=== PATIENT | female | born 1980 | race Caucasian/White ===

== ENCOUNTER 2016-10-22 21:41 | Inpatient (IN) | payer OTHER ==
[2016-10-22 21:47] VITALS: BMI 24.7
[2016-10-22 23:06] LABS: BASOPHIL 0.3 % (0-2.0); EOSINOPHIL 0.1 % (0-4.5); MCH 27.2 pg (25.7-33.7); MEAN PLT VOLUME 7.6 fl (7.5-11.1); NEUTROPHILS 89.8 % (42.8-82.8); PLATELET COUNT 252 K/MM3 (134-434); RDW 13.3 % (11.6-15.6); WHITE BLOOD COUNT 16.1 K/mm3 (4.0-10.0)
[2016-10-22 23:07] LABS: URINE APPEARANCE CLEAR; URINE BILIRUBIN NEGATIVE (NEGATIVE); URINE BLOOD 2+ (NEGATIVE); URINE COLOR YELLOW; URINE GLUCOSE (UA) NEGATIVE (NEGATIVE); URINE KETONE 1+ (NEGATIVE); URINE LEUK ESTERASE NEGATIVE (NEGATIVE); URINE NITRITE NEGATIVE (NEGATIVE); URINE PROTEIN NEGATIVE (NEGATIVE); URINE UROBILINOGEN 4.0 E.U/dl E.U./dl (0.2-1.0)
[2016-10-22 23:08] LABS: URINE MUCUS RARE; URINE RBC 8 /hpf (0-3); URINE WBC 3 /hpf (3-5)
[2016-10-22 23:35] LABS: ANION GAP 12 (8-16); CALCIUM 8.7 mg/dL (8.5-10.1); CO2 26 mmol/L (21-32); CREATININE 0.5 mg/dL (0.55-1.02); GLUCOSE,RANDOM 110 mg/dL (74-106); SGOT/AST 298 U/L (15-37); SGPT/ALT 212 U/L (12-78)
[2016-10-22 23:37] LABS: ALK PHOS 62 U/L (45-117); BILIRUBIN,TOTAL 0.9 mg/dL (0.2-1.0)
--- NOTE | 2016-10-23 00:17 | PDOC ---
History of Present Illness - General Chief Complaint: Nausea/Vomiting Stated Complaint: VOMITING Time Seen by Provider: 10/22/16 21:54 - History of Present Illness Initial Comments: 10/22/16 23:45 CHIEF COMPLAINT: abdominal pain, vomiting HISTORY OF PRESENT ILLNESS: 36 yo F with history of ovarian cysts presents to ED with abdominal pain and vomiting since this afternoon. Patient states she has had two episodes of vomiting this evening. She denies any diarrhea, rectal bleeding, hematemesis, fever, or chills. She states that she had rice with milk and pizza today. She describes the pain as cramping and is localized to the right lower quadrant. No recent travel or sick contacts. PAST MEDICAL HISTORY: ovarian cysts FAMILY HISTORY: Denies SOCIAL HISTORY: Lives at home with . Denies tobacco, alcohol, illicit drug use. SURGICAL HISTORY: cystectomy ALLERGIES: No known drug allergies REVIEW OF SYSTEMS General/Constitutional: Denies fever or chills. Denies weakness, weight change. HEENT: Denies change in vision. Denies ear pain or discharge. Denies sore throat. Cardiovascular: Denies chest pain or shortness of breath. Respiratory: Denies cough, wheezing, or hemoptysis. Gastrointestinal: Abdominal pain and vomiting x 1 day. Denies diarrhea or constipation. Denies rectal bleeding. Genitourinary: Denies dysuria, frequency, or change in urination. Musculoskeletal: Denies joint or muscle swelling or pain. Denies neck or back pain. Neurologic: Denies headache, vertigo, loss of consciousness, or loss of sensation. PHYSICAL EXAM General Appearance: Well-appearing, appropriately dressed. No apparent distress , no intoxication. HEENT: EOMI, PERRLA, normal ENT inspection, normal voice, TMs normal, pharynx normal. No conjunctival pallor. No photophobia, scleral icterus. Neck: Supple. Trachea midline. No tenderness, rigidity, carotid bruit, stridor , lymphadenopathy, or thyromegaly. Respiratory/Chest: Lungs CTAB. No shortness of breath, chest tenderness, respiratory distress, accessory muscle use. No crackles, rales, rhonchi, stridor , wheezing, dullness Cardiovascular: RRR. S1, S2. Vascular Pulses: Dorsalis-Pedis (R): 2+, Dorsalis-Pedis (L): 2+ Gastrointestinal/Abdominal: RLQ tenderness. Normal bowel sounds. Abdomen soft , non-distended. No organomegaly, pulsatile mass, guarding, hernia, hepatomegaly, splenomegaly. Musculoskeletal/Extremities: Normal inspection. FROM of all extremities, normal capillary refill. Pelvis Stable. No CVA tenderness. No tenderness to extremities, pedal edema, swelling, erythema or deformity. Integumentary: Appropriate color, dry, warm. No cyanosis, erythema, jaundice or rash Neurologic: bond analyst II-XII intact. Fully oriented, alert. Appropriate mood/affect. Motor strength 5/5. No appreciable EOM palsy, facial droop or sensory deficit. 10/23/16 01:51 Past History - Past Medical History Allergies/Adverse Reactions: Allergies Allergy/AdvReac Type Severity Reaction Status Date / Time No Known Allergies Allergy Verified 10/22/16 21:58 Home Medications: Ambulatory Orders NK [No Known Home Medication] 10/07/15 - Psycho/Social/Smoking Cessation Hx Suicidal Ideation: No Smoking History: Never smoked Have you smoked in the past 12 months: No Number of Cigarettes Smoked Daily: 0 Information on smoking cessation initiated: No Hx Alcohol Use: No Drug/Substance Use Hx: No *Physical Exam - Vital Signs Last Vital Signs Temp Pulse Resp BP Pulse Ox 97.6 F 70 18 117/83 100 10/22/16 21:46 10/22/16 21:46 10/22/16 21:46 10/22/16 21:46 10/22/16 21:46 ED Treatment Course - LABORATORY CBC & Chemistry Diagram: 10/22/16 22:50 10/22/16 22:50 - ADDITIONAL ORDERS Additional order review: Laboratory Results 10/22/16 22:50 Urine Color Yellow Urine Appearance Clear Urine pH 7.0 Ur Specific [place] 1.011 Urine Protein Negative Urine Glucose (UA) Negative Urine Ketones 1+ H Urine Blood 2+ H Urine Nitrite Negative Urine Bilirubin Negative Urine Urobilinogen 4.0 e.u/dl H Ur Leukocyte Esterase Negative Urine RBC 8 Urine WBC 3 Ur Epithelial Cells Rare Urine Mucus Rare Urine HCG, Qual Negative 10/22/16 22:50 RBC 4.75 MCV 85.0 MCHC 32.0 RDW 13.3 MPV 7.6 Neutrophils % 89.8 H Lymphocytes % 6.6 L Monocytes % 3.2 L Eosinophils % 0.1 Basophils % 0.3 - RADIOLOGY Radiology Studies Ordered: Category Date Time Status ABDOMEN & PELVIS CT WITH CONTR [CT] Stat CT Scan 10/22/16 22:35 Ordered Medical Decision Making - Medical Decision Making 10/23/16 00:17 36 yo F with hx of ovarian cysts presents to ED with RLQ abdominal pain and vomiting. DDx includes appendicitis, pancreatitis, cholecystitis, colitis, diverticulitis , gastritis, AGE, ovarian torsion, ruptured ovarian cyst. -CBC, CMP, lipase -IVF -Abdomen & pelvis CT with contrast 10/23/16 01:25 Labs: WBC 16.1 AST 298, ALT 216 CT results: Mural thickening and edema of the gallbladder wall. Consider cholecystitis. Clinical presentation consistent with cholecystitis. Discussed case with ED attending Gary, will admit for acute cholecystitis. *DC/Admit/Observation/Transfer Diagnosis at time of Disposition: Acute cholecystitis - Discharge Dispostion Admit: Yes
[2016-10-23] MEDS ORDERED: ONDANSETRON 4 MG/2 ML VIAL IVPB PRN (02:42)
[2016-10-23] MEDS ORDERED: SODIUM CHLORIDE 1,000 ML IV SCH ×2 (02:45→09:26)
--- NOTE | 2016-10-23 02:50 | HP ---
CHIEF COMPLAINT: Abdominal pain PCP: none HISTORY OF PRESENT ILLNESS: This is a 36 year old female with a past medical history of ovarian cysts, s/p removal who presented to the ED with abdominal pain and vomiting 2 times yesterday. On exam, pt states she has a "little" pain. Denies nausea. No further vomiting since arrival to the ED. Denies SOB, chest pain, palpitations or diarrhea. ER course was notable for: (1) WBC 16.1 (2) CT c/w acute cholecystitis Recent Travel: pt denies PAST MEDICAL HISTORY: ovarian cysts PAST SURGICAL HISTORY: ovarian cystectomy Social History: lives at home with and 3 children, age 16, 15 and 2 Smoking: pt denies Alcohol: pt denies Drugs: pt denies Allergies No Known Allergies Allergy (Verified 10/22/16 21:58) HOME MEDICATIONS: 3 Medication Instructions Recorded NK [No Known Home Medication] 10/07/15 REVIEW OF SYSTEMS CONSTITUTIONAL: Absent: fever, chills, diaphoresis, generalized weakness, malaise, loss of appetite, weight change HEENT: Absent: rhinorrhea, nasal congestion, throat pain, throat swelling, difficulty swallowing, mouth swelling, ear pain, eye pain, visual changes CARDIOVASCULAR: Absent: chest pain, syncope, palpitations, irregular heart rate, lightheadedness , peripheral edema RESPIRATORY: Absent: cough, shortness of breath, dyspnea with exertion, orthopnea, wheezing, stridor, hemoptysis GASTROINTESTINAL: Present: abdominal pain, nausea, vomiting Absent: abdominal distension, diarrhea, constipation, melena, hematochezia GENITOURINARY: Absent: dysuria, frequency, urgency, hesitancy, hematuria, flank pain, genital pain MUSCULOSKELETAL: Absent: myalgia, arthralgia, joint swelling, back pain, neck pain SKIN: Absent: rash, itching, pallor HEMATOLOGIC/IMMUNOLOGIC: Absent: easy bleeding, easy bruising, lymphadenopathy, frequent infections ENDOCRINE: Absent: unexplained weight gain, unexplained weight loss, heat intolerance, cold intolerance NEUROLOGIC: Absent: headache, focal weakness or paresthesias, dizziness, unsteady gait, seizure, mental status changes, bladder or bowel incontinence PSYCHIATRIC: Absent: anxiety, depression, suicidal or homicidal ideation, hallucinations. PHYSICAL EXAMINATION Vital Signs - 24 hr 3 10/22/16 21:46 Temperature 97.6 F Pulse Rate 70 Respiratory 18 Rate Blood Pressure 117/83 O2 Sat by Pulse 100 Oximetry (%) GENERAL: Awake, alert, and fully oriented, in no acute distress. HEAD: Normal with no signs of trauma. EYES: Pupils equal, round and reactive to light, extraocular movements intact, sclera anicteric, conjunctiva clear. No lid lag. EARS, NOSE, THROAT: Ears normal, nares patent, oropharynx clear without exudates. Moist mucous membranes. NECK: Normal range of motion, supple without lymphadenopathy, JVD, or masses. LUNGS: Breath sounds equal, clear to auscultation bilaterally. No wheezes, and no crackles. No accessory muscle use. HEART: Regular rate and rhythm, normal S1 and S2 without murmur, rub or gallop. ABDOMEN: Soft, not distended, normoactive bowel sounds, no guarding, no rebound , no masses. No hepatomegaly or splenomegaly. generalized pain on palp, ann marie RUQ MUSCULOSKELETAL: Normal range of motion at all joints. No bony deformities or tenderness. No CVA tenderness. UPPER EXTREMITIES: 2+ pulses, warm, well-perfused. No cyanosis. No clubbing. Cap refill <2 seconds. No peripheral edema. LOWER EXTREMITIES: 2+ pulses, warm, well-perfused. No calf tenderness. No peripheral edema. NEUROLOGICAL: Cranial nerves II-XII intact. Normal speech. Normal gait. PSYCHIATRIC: Cooperative. Good eye contact. Appropriate mood and affect. SKIN: Warm, dry, normal turgor, no rashes or lesions noted. Laboratory Results - last 24 hr 3 10/22/16 10/22/16 10/22/16 22:50 22:50 22:50 WBC 16.1 H RBC 4.75 Hgb 12.9 Hct 40.4 MCV 85.0 MCHC 32.0 RDW 13.3 Plt Count 252 MPV 7.6 Neutrophils % 89.8 H Lymphocytes % 6.6 L Monocytes % 3.2 L Eosinophils % 0.1 Basophils % 0.3 Sodium 139 Potassium 4.1 Chloride 101 Carbon Dioxide 26 Anion Gap 12 BUN 7 Creatinine 0.5 L Creat Clearance w eGFR > 60 Random Glucose 110 H Calcium 8.7 Total Bilirubin 0.9 AST 298 H ALT 212 H Alkaline Phosphatase 62 Total Protein 7.0 Albumin 4.0 Lipase 89 Urine Color Yellow Urine Appearance Clear Urine pH 7.0 Ur Specific [place] 1.011 Urine Protein Negative Urine Glucose (UA) Negative Urine Ketones 1+ H Urine Blood 2+ H Urine Nitrite Negative Urine Bilirubin Negative Urine Urobilinogen 4.0 e.u/dl H Ur Leukocyte Esterase Negative Urine RBC 8 Urine WBC 3 Ur Epithelial Cells Rare Urine Mucus Rare Urine HCG, Qual Negative Abd/pelvis CT: Impression: Mural thickening and edema of the gallbladder wall. Consider cholecystitis. ASSESSMENT/PLAN: 36yF with PMH ovarian cysts who presented to the ED with abdominal pain and vomiting. She is being admitted for acute cholecystitis. Acute cholecystitis with transaminitis - NPO - IVF NS @ 75cc/hr - zosyn 3.375mg - surgical consult - abdominal sono ordered - repeat LFTs with am labs, recommend MRCP if still elevated. DVT PPX - heparin 5000u BID, start tonight if not going to OR FEN - NS@75cc/hr - repeat labs @6am - NPO for now Dispo: Pt currently requires inpatient care. Visit type - Emergency Visit Emergency Visit: Yes ED Registration Date: 10/22/16 Care time: The patient presented to the Emergency Department on the above date and was hospitalized for further evaluation of their emergent condition. - New Patient This patient is new to me today: Yes Date on this admission: 10/23/16 - Critical Care Critical Care patient: No
[2016-10-23] MEDS ORDERED: PIPERACILLIN/TAZOB 3.375 GM/50 ML PRE-DOCKED IVPB ONE (03:00)
[2016-10-23] MEDS ORDERED: PIPERACILLIN/TAZOB 3.375 GM/50 ML PRE-DOCKED IVPB SCH ×2 (03:00→10:00)
--- NOTE | 2016-10-23 07:44 | PN ---
Addendum entered and electronically signed by Toribio Nelson PA 10/23/16 13:27: CBC, BMP 10/23/16 07:00 10/23/16 07:00 Hepatic Panel Total Bilirubin 2.1 mg/dL (0.2-1.0) H D 10/23/16 07:00 AST 1133 U/L (15-37) H 10/23/16 07:00 ALT 942 U/L (12-78) H D 10/23/16 07:00 Alkaline Phosphatase 89 U/L (45-117) D 10/23/16 07:00 Albumin 3.9 g/dl (3.4-5.0) 10/23/16 07:00 LFTs and T.bili rising. f/u MRCP (ordered) GI pending results of MRCP Original Note: Progress Note (short form) - Note Progress Note: Patient transferred to Dr. Navjot Escobar's dervice at 07:40 this morning. 36 y/o female with PMHx noted below, presents to [facility] ED w/ c/o abd pain with vomiting x2 yesterday. Started about 30 mins after eating food. Has had this in the past but never sought medical attention. No further episodes of n/v since in the ED. She was started on Zosyn in the ER. Denies f/c, CP, SOB, cough, flank pain, hematuria or trauma. Recent Travel: Denies PMHx: Ovarian cysts PSHx: ovarian cystectomy CT Scan: Mural thickening & edema of the gallbladder wall consistent w/ acute cholecystitis. Last Vital Signs Temp Pulse Resp BP Pulse Ox 98.3 F 74 18 100/60 98 10/23/16 07:13 10/23/16 07:13 10/23/16 07:13 10/23/16 07:13 10/23/16 07:13 Laboratory Tests 10/22/16 10/22/16 22:50 22:50 WBC 16.1 H Total Bilirubin 0.9 AST 298 H ALT 212 H Alkaline Phosphatase 62 Lipase 89 Urine Results Urine Color Yellow 10/22/16 22:50 Urine Appearance Clear 10/22/16 22:50 Urine pH 7.0 (5.0-8.0) 10/22/16 22:50 Ur Specific [place] 1.011 (1.001-1.035) 10/22/16 22:50 Urine Protein Negative (NEGATIVE) 10/22/16 22:50 Urine Glucose (UA) Negative (NEGATIVE) 10/22/16 22:50 Urine Ketones 1+ (NEGATIVE) H 10/22/16 22:50 Urine Blood 2+ (NEGATIVE) H 10/22/16 22:50 Urine Nitrite Negative (NEGATIVE) 10/22/16 22:50 Urine Bilirubin Negative (NEGATIVE) 10/22/16 22:50 Ur Leukocyte Esterase Negative (NEGATIVE) 10/22/16 22:50 Urine RBC 8 /hpf (0-3) 10/22/16 22:50 Urine WBC 3 /hpf (3-5) 10/22/16 22:50 Urine HCG Negative 10/22/16 22:50 PE General: resting comfortably at this time, nad Pulm: cta b/l anteriorly Cor: rrr Abd: RUQ ttp. [place] + Skin: umbilical scar from previous surgery (lap ovarian cystectomy) Problem List - Problems (1) Acute cholecystitis Assessment/Plan: Admitted to Dr. Escobar's service NPO / IVF GI /DVT ppx f/u Coags & type and screen Possible OR today for lap zaida IV ABX Above discussed with Dr. Escobar and agrees Code(s): K81.0 - ACUTE CHOLECYSTITIS
[2016-10-23 08:04] LABS: BASOPHIL 0.5 % (0-2.0); EOSINOPHIL 0.6 % (0-4.5); MCHC 34.1 g/dl (32.0-36.0); MEAN PLT VOLUME 8.1 fl (7.5-11.1); NEUTROPHILS 68.5 % (42.8-82.8); PLATELET COUNT 242 K/MM3 (134-434); RDW 13.4 % (11.6-15.6); WHITE BLOOD COUNT 6.5 K/mm3 (4.0-10.0)
[2016-10-23 08:37] LABS: ALBUMIN 3.9 g/dl (3.4-5.0); ALK PHOS 89 U/L (45-117); AMYLASE 19 U/L (25-115); ANION GAP 8 (8-16); BILIRUBIN,TOTAL 2.1 mg/dL (0.2-1.0); CALCIUM 8.5 mg/dL (8.5-10.1); CO2 25 mmol/L (21-32); CREATININE 0.5 mg/dL (0.55-1.02); GLUCOSE,RANDOM 93 mg/dL (74-106); MAGNESIUM 2.1 mg/dL (1.8-2.4); TOT PROT 6.6 g/dl (6.4-8.2)
[2016-10-23 08:40] LABS: SGOT/AST 1133 U/L (15-37); SGPT/ALT 942 U/L (12-78)
[2016-10-23 08:45] LABS: INR 1.19 (0.82-1.09); PROTHROMBIN TIME (PATIENT) 13.1 SEC (9.98-11.88)
[2016-10-23] MEDS ORDERED: KCL 10 MEQ IVPB 100 ML IVPB ONE (09:05)
[2016-10-23] MEDS: KCL 10 MEQ IVPB 100 ML IVPB SCH ×2 (09:13→10:15)
[2016-10-23] MEDS ORDERED: LEVOFLOXACIN 500 MG IVPB 100 ML IVPB SCH (10:45)
[2016-10-23] MEDS: METRONIDAZOLE 500 MG PREMIXED 100 ML IVPB SCH ×2 (11:15→18:33)
[2016-10-23] MEDS ORDERED: METRONIDAZOLE 500 MG PREMIXED 100 ML IVPB ONE (11:28)
[2016-10-23] MEDS ORDERED: LEVOFLOXACIN 500 MG IVPB 100 ML IVPB ONE (11:28)
[2016-10-23] MEDS: D5-1/2NS+20 MEQ KCL - 1,000 ML IV SCH ×2 (12:10→22:04)
[2016-10-23] MEDS: HEPARIN NA (PORCINE) 5,000 UNITS/ML 1ML VIAL SQ SCH ×2 (14:00→22:08)
[2016-10-23] MEDS ORDERED: HEPARIN NA (PORCINE) 5,000 UNITS/ML 1ML VIAL ONE (14:12)
[2016-10-23] MEDS ORDERED: morphine CARPU-JECT 4 MG/1 ML DISP.SYRIN IVPUSH PRN (15:31)
[2016-10-23] MEDS ORDERED: ACETAMINOPHEN 325 MG TABLET (FP) PO PRN (15:31)
[2016-10-23] MEDS ORDERED: INSULIN (NOVOLOG) ASPART 100 UNITS/ML 10ML VIAL ONE (18:29)
[2016-10-23] MEDS ORDERED: INFLUENZA VACCINE 45 MCG/0.5 ML (MDV 16-17) IM ONE (20:30)
[2016-10-23] MEDS ORDERED: HEPARIN NA (PORCINE) 5,000 UNITS/ML 1ML VIAL SQ SCH (22:00)
[2016-10-24] MEDS: METRONIDAZOLE 500 MG PREMIXED 100 ML IVPB SCH ×2 (01:36→09:03)
[2016-10-24] MEDS: HEPARIN NA (PORCINE) 5,000 UNITS/ML 1ML VIAL SQ SCH (05:44)
[2016-10-24] MEDS: D5-1/2NS+20 MEQ KCL - 1,000 ML IV SCH (06:43)
[2016-10-24 08:15] LABS: BASOPHIL 0.8 % (0-2.0); EOSINOPHIL 4.7 % (0-4.5); MCH 28.9 pg (25.7-33.7); MCHC 33.8 g/dl (32.0-36.0); MEAN CELL VOLUME 85.5 fl (80-96); MEAN PLT VOLUME 7.9 fl (7.5-11.1); NEUTROPHILS 41.6 % (42.8-82.8); PLATELET COUNT 191 K/MM3 (134-434); RDW 13.5 % (11.6-15.6); WHITE BLOOD COUNT 3.3 K/mm3 (4.0-10.0)
--- NOTE | 2016-10-24 08:26 | PROC ---
Procedure Note Procedure: PRE-OP NOTE Dx: Acute cholecystitis/lithiasis Planned procedure: Lap zaida possible open Surgeon: Dr. Navjot Escobar Informed consent obtained using [employer] Service for above procedure after all risks, benefits and alternatives explained. Opportunity for questions. All questions answered. Patient signed consent with RN also as witness. Last Vital Signs Temp Pulse Resp BP Pulse Ox 98.3 F 63 18 99/56 97 10/24/16 06:00 10/24/16 06:00 10/24/16 06:00 10/24/16 06:00 10/23/16 22:00 CBC, BMP 10/24/16 06:35 INR, PTT INR 1.19 (0.82-1.09) H 10/23/16 08:10 Blood Type Blood Type A POSITIVE 10/23/16 09:38
--- NOTE | 2016-10-24 08:30 | PN ---
Progress Note (short form) - Note Progress Note: PRE-OP NOTE Dx: Acute cholecystitis/lithiasis Planned procedure: Lap zaida possible open Surgeon: Dr. Navjot Escobar Consent: Informed consent obtained using [employer] for above procedure after all risks, benefits and alternatives explained. Opportunity for questions. All questions answered. Patient signed consent willingly with her RN present as witness. MRCP: no evidence of choledocholithiasis Last Vital Signs Temp Pulse Resp BP Pulse Ox 98.3 F 63 18 99/56 97 10/24/16 06:00 10/24/16 06:00 10/24/16 06:00 10/24/16 06:00 10/23/16 22:00 CBC, BMP 10/24/16 06:35 10/24/16 06:35 Hepatic Panel Total Bilirubin 0.6 mg/dL (0.2-1.0) D 10/24/16 06:35 Direct Bilirubin 0.2 mg/dL (0.0-0.2) 10/24/16 06:35 AST 271 U/L (15-37) H D 10/24/16 06:35 ALT 638 U/L (12-78) H D 10/24/16 06:35 Alkaline Phosphatase 106 U/L (45-117) 10/24/16 06:35 Albumin 3.5 g/dl (3.4-5.0) 10/24/16 06:35 INR, PTT INR 1.19 (0.82-1.09) H 10/23/16 08:10 Blood Type Blood Type A POSITIVE 10/23/16 09:38 Urine 10/22/16 22:50 Urine HCG, Qual Negative Problem List - Problems (1) Acute cholecystitis Assessment/Plan: Going to OR for lap zaida at 0930 hrs this morning npo/ivf gi/dvt ppx pain management Code(s): K81.0 - ACUTE CHOLECYSTITIS
[2016-10-24 08:40] LABS: ALBUMIN 3.5 g/dl (3.4-5.0); BILIRUBIN,DIRECT 0.2 mg/dL (0.0-0.2); BILIRUBIN,TOTAL 0.6 mg/dL (0.2-1.0); CREATININE 0.4 mg/dL (0.55-1.02)
[2016-10-24] MEDS ORDERED: BUPIVACAINE HCL/PF 0.5% (5MG/ML) 10 ML VIAL ONE (09:10)
[2016-10-24] MEDS ORDERED: PROPOFOL 20 ML ONE (09:12)
[2016-10-24] MEDS ORDERED: ceFAZolin SODIUM 1 GM VIAL ONE (09:12)
[2016-10-24] MEDS ORDERED: KETOROLAC TROMETHAMINE 30 MG/1 ML VIAL ONE (09:12)
[2016-10-24] MEDS ORDERED: DEXAMETHASONE SOD PHOSPHATE 4 MG/1 ML VIAL ONE (09:12)
[2016-10-24] MEDS ORDERED: SODIUM CHLORIDE 0.9% P/F 10 ML VIAL IJ ONE (09:12)
[2016-10-24] MEDS ORDERED: MIDAZOLAM HCL 2 MG/2 ML SINGLE DOSE VIAL ONE (09:12)
[2016-10-24] MEDS ORDERED: ONDANSETRON 4 MG/2 ML VIAL IVPUSH PRN ×2 (09:48→11:15)
[2016-10-24] MEDS ORDERED: NEOSTIGMINE METHYLSULFATE 0.5 MG/ML - 10 ML MDV ONE (10:35)
[2016-10-24] MEDS ORDERED: GLYCOPYRROLATE 0.2 MG/1 ML VIAL ONE (10:35)
[2016-10-24] MEDS ORDERED: BUPIVACAINE HCL/PF 0.5% (5MG/ML) 10 ML VIAL IJ ONE ×2 (10:40)
--- NOTE | 2016-10-24 11:07 | SURG ---
Surgery Submarine Element Coordinator Note Submarine Element Coordinator: Toribio Nelson PA-C Date of Service: 10/24/16 Diagnosis: Acute cholecystitis, cholelithiasis Procedure: Laparoscopic cholecystectomy I was present for the entirety of the operative procedure. For further detail, please refer to operative report. Visit type - Case Type Case Type: ED Admission - Emergency Emergency Visit: Yes ED Registration Date: 10/23/16 Care time: The patient presented to the Emergency Department on the above date and was hospitalized for further evaluation of their emergent condition. - New patient This patient is new to me today: Yes Date on this admission: 10/24/16
--- NOTE | 2016-10-24 11:09 | OP ---
Operative Note - Note: Operative Date: 10/24/16 Pre-Operative Diagnosis: Acute cholecystitis/lithiasis Operation: Lap zaida Post-Operative Diagnosis: Same as Pre-op Surgeon: Navjot Escobar Pollution Control Engineer: Toribio Nelson Anesthesiologist/WATCH ELECTRICIAN: Tony Mckenna Jr. Anesthesia: General Specimens Removed: gallbladder Estimated Blood Loss (mls): 20 Fluid Volume Replaced (mls): 850 Operative Report Dictated: Yes
[2016-10-24] MEDS ORDERED: ACETAMINOPHEN 1000 MG/100 ML VIAL (NON FORMULARY) IVPB ONE (11:12)
[2016-10-24] MEDS ORDERED: morphine CARPU-JECT 4 MG/1 ML DISP.SYRIN IVPUSH PRN (11:15)
[2016-10-24] MEDS ORDERED: ACETAMINOPHEN 325 MG TABLET (FP) PO PRN (11:15)
[2016-10-24] MEDS ORDERED: HEPARIN NA (PORCINE) 5,000 UNITS/ML 1ML VIAL SQ SCH (14:00)
--- NOTE | 2016-10-24 15:23 | PN ---
Progress Note (short form) - Note Progress Note: General Surgery Post-Op Note Patient seen and examined. Discussed patient's progress with nurse. Patient tolerated her diet without nausea or vomiting. Voiding without issue, ambulating to bathroom, pain controlled, no complaints. Denies F/C, CP/SOB. Last Vital Signs Temp Pulse Resp BP Pulse Ox 98.1 F 63 20 114/60 96 10/24/16 13:05 10/24/16 13:05 10/24/16 13:05 10/24/16 13:05 10/24/16 13:05 Exam: Gen: NAD, resting comfortably in bed Abd: Soft, nondistended, mild tenderness with palp, some bleeding noted at umbilical port site, 4x4 and Tegederm placed, other port sites with steri- strips clean/dry/intact Problem List - Problems (1) Acute cholecystitis Assessment/Plan: POD#0 s/p laparoscopic cholecystecomy Patient tolerating diet, voiding, pain controlled Change to oral pain medication, Oxycodone 5 mg PO q4h PRN LFT's ordered, follow-up results Ambulate Discharge home today or tomorrow morning Code(s): K81.0 - ACUTE CHOLECYSTITIS
[2016-10-24] MEDS ORDERED: oxyCODONE HCL 5 MG TABLET PO PRN (15:24)
[2016-10-24 15:35] VITALS: BP 101/71; PULSE 65; TEMP 97.8
[2016-10-24 17:08] LABS: BILIRUBIN,DIRECT 0.2 mg/dL (0.0-0.2); BILIRUBIN,TOTAL 0.4 mg/dL (0.2-1.0); TOT PROT 7.1 g/dl (6.4-8.2)
--- NOTE | 2016-10-25 12:48 | PATH ---
Surgical Pathology Report Patient Name: QAMAR CRUMP Med. Rec. #: [id number] /Age/Gender: 1980 (Age: 36) / F Account: [id number] Location: [address] [place] [address] Taken: 10/24/2016 Received: 10/24/2016 Reported: 10/25/2016 Physicians: Navjot Escobar MD Specimen(s) Received GALLBLADDER Clinical History Acute cholecystitis Final Diagnosis GALLBLADDER, CHOLECYSTECTOMY: ACUTE AND CHRONIC CHOLECYSTITIS, CHOLELITHIASIS AND CHOLESTEROLOSIS. Electronically Signed Clovis Ayers M.D. Gross Description Received in formalin, labeled "gallbladder" is a 9.0 x 2.8 x 2.7 cm gallbladder with a 0.2 c. in length portion of cystic duct attached. The outer surface is stephenson-pink and varies from smooth to shaggy. The lumen contains green, tenacious bile as well as multiple yellow, irregular, bosselated choleliths averaging 0.4 cm in greatest dimension. The mucosa is hyperemic, focally eroded, with gold cholesterol stippling. The wall of the gallbladder ranges from 0.1-0.3 cm in thickness. Trader sections are submitted in one cassette. 10/24/201610/24/2016
--- NOTE | 2016-10-25 12:58 | OP ---
DATE OF OPERATION: 10/24/2016 PREOPERATIVE DIAGNOSES: 1. Acute cholecystitis. 2. Cholelithiasis. POSTOPERATIVE DIAGNOSES: 1. Acute cholecystitis. 2. Cholelithiasis. PROCEDURE: Laparoscopic cholecystectomy. SURGEON: Navjot Escobar MD ASSEMBLER EQUIPMENT: Toribio Nelson PA-C; Hilaria Reyes PA-C ANESTHESIA: General. OPERATIVE FINDINGS: Acute cholecystitis and cholelithiasis. The rest of the findings were unremarkable. DESCRIPTION OF PROCEDURE: The patient was placed on the operating table in the supine position and after the induction of general anesthesia, the patient's abdomen was prepped with ChloraPrep and draped in sterile fashion. A timeout was taken and pneumoperitoneum was established at the umbilicus using a Veress needle. Once 15 mmHg pressure was obtained, a 5-mm port was placed and a laparoscopy carried out and the previously noted findings were observed. An additional lateral 5-mm and a subxiphoid 12-mm port were placed. Then, the gallbladder was placed on cephalad and lateral traction. Dissection was begun in the triangle of Calot. Using blunt and electrocautery dissection, the cystic duct was identified coursing from the neck of the gallbladder distally to the common bile duct. It was dissected proximally and distally for length. The peritoneum was opened medially over the cystic artery and lymph node, and the cystic artery was dissected proximally and distally for length as well. A critical view of safety was taken. Then, the cystic duct was divided between 10-mm clips, twice distally and twice proximally. The artery was similarly clipped and divided. The gallbladder was then removed from the liver bed in a retrograde fashion using electrocautery. Prior to removal from the edge of the liver, hemostasis was checked for and noted to be good. The gallbladder was then removed from the edge of the liver, placed in an Endo Catch and brought out through the subxiphoid port. Pneumoperitoneum was re-established and copious irrigation carried out. Hemostasis was verified. Then, all ports were removed under laparoscopic vision without evidence of bleeding from the port sites. The fascia at the subxiphoid port was closed with a single [id number] 0 Vicryl suture. The skin at all port sites was closed with 4-0 Vicryl in a subcuticular continuous fashion. Steri-Strips and Band-Aid dressings were applied. The patient was aroused from general anesthesia and was transferred to the postanesthesia care unit in stable condition, awake and alert. ESTIMATED BLOOD LOSS: 20 mL. REPLACEMENTS: Crystalloid. DRAINS: None. SPECIMENS: Gallbladder and contents to Pathology. I, Navjot Escobar, was physically present in the operating room from the time the patient was placed on the operating table until she was transferred to the postanesthesia care unit with my accompaniment. MD CLARISA Sanders/[id number]
== END 2016-10-24 18:49 | disposition home or self-care (01) | DRG 263 ==
LOC: JER 21:41 → JERBED 10-23 02:54 → J5S 10-23 16:55
PROVIDERS: ADMIT Surgery; ATTEND Surgery
PROC: 0FT44ZZ Resection of Gallbladder, Percutaneous Endoscopic Approach (ICD-10-PCS; principal; 2016-10-23)
DX: K80.00 Calculus of gallbladder with acute cholecystitis without obstruction (principal); N83.299 Other ovarian cyst, unspecified side
CPT/HCPCS: 36415; 74177-TC; 74181-TC; 76705-TC; 80048; 80053; 80076; 81003; 81015; 82150; 83690; 83735; 84100; 84703; 85025; 85610; 86850; 86900; 86901; 87040; 87086; 88304-TC; 94760; 99284-25; G0008; J1644; Q2037

== ENCOUNTER 2024-02-22 16:35 | Inpatient (IN) | payer OTHER ==
[2024-02-22] MEDS: BETAMET ACET/BETAMET NA PH 30 MG/5 ML VIAL IM STA (17:30)
[2024-02-22] MEDS ORDERED: BETAMET ACET/BETAMET NA PH 30 MG/5 ML VIAL ONE (17:38)
[2024-02-22 18:12] LABS: URIC ACID 6.4 mg/dL (2.6-7.2)
[2024-02-22 19:50] VITALS: BMI 34.3
[2024-02-22 19:55] LABS: BASO % 0.3 % (0-2.0); EOS % 0.1 % (0-4.5); HEMATOCRIT 35.6 % (32.4-45.2); HEMOGLOBIN 12.3 GM/dL (10.7-15.3); LYMPH % 11.4 % (8-40); MCH 29.7 pg (25.7-33.7); MCHC 34.5 g/dl (32.0-36.0); MEAN CELL VOLUME 86.2 fl (80-96); MEAN PLT VOLUME 8.4 fl (7.5-11.1); MONO % 4.1 % (3.8-10.2); NEUT % 84.1 % (42.8-82.8); PLATELET COUNT 221 10^3/uL (134-434); RBC 4.14 M/mm3 (3.60-5.2); RDW 14.6 % (11.6-15.6); WHITE BLOOD COUNT 12.2 K/mm3 (4.0-10.0)
[2024-02-22] MEDS: CITRIC ACID/SODIUM CITRATE 30 ML UNIT-DOSE CUP PO ONE (20:00)
[2024-02-22] MEDS: ELECTROLYTE-148 SOLN 500 ML IV ONE (20:00)
[2024-02-22] MEDS ORDERED: morphine SULFATE/PF 1 MG/2 ML (2cc Syringe - QUVA) ONE (20:00)
[2024-02-22 20:01] LABS: INR 0.89 (0.83-1.09); PROTHROMBIN TIME (PATIENT) 10.1 SEC (9.7-13.0)
[2024-02-22 20:04] LABS: ACTIVATED PTT 28.2 SECONDS (25.2-36.5)
[2024-02-22 20:29] LABS: POTASSIUM 4.1 mmol/L (3.5-5.1)
[2024-02-22] MEDS: ELECTROLYTE-148 SOLN 1,000 ML IV SCH (20:30)
[2024-02-22 20:31] LABS: BLOOD UREA NITROGEN 20.7 mg/dL (7-18); CALCIUM 8.9 mg/dL (8.5-10.1)
[2024-02-22] MEDS ORDERED: MAGNESIUM 4GM/H20 - 4 GM/100 ML IVPB IVPB ONE ×2 (20:34→22:29)
[2024-02-22 20:35] LABS: CREATININE 0.5 mg/dL (0.55-1.3)
[2024-02-22 21:39] LABS: CORD BASE EXCESS -4.4 mmol/L (0-2); CORD BASE EXCESS -5.9 mmol/L (0-2); CORD HCO3 22.3 mmHg (20-29); CORD HCO3 22.8 mmHg (20-29); CORD PCO2 46.9 mmHg (30-78); CORD pH 7.213 (7.14-7.44); CORD pH 7.295 (7.14-7.44)
[2024-02-22] MEDS ORDERED: ACETAMINOPHEN 325 MG TABLET (FP) PO PRN (22:04)
[2024-02-22] MEDS ORDERED: METHYLERGONOVINE MALEATE 0.2 MG/1 ML AMP IM PRN (22:04)
[2024-02-22] MEDS: OXYTOCIN 20 UNITS in 0.9% NS 20 UNIT/1,000 ML INFUS.BAG IV SCH ×2 (22:15→23:05)
[2024-02-22] MEDS ORDERED: OXYTOCIN 20 UNITS in 0.9% NS 20 UNIT/1,000 ML INFUS.BAG IV ONE (22:21)
[2024-02-22] MEDS ORDERED: MAGNESIUM SULFATE 20GM/500ML - 20 GM/500 ML INFUS.BAG ONE (22:29)
[2024-02-22] MEDS: MAGNESIUM 4GM/H20 - 4 GM/100 ML IVPB IVPB ONE (22:33)
[2024-02-22] MEDS ORDERED: ACETAMINOPHEN 1000 MG/100 ML BAG IVPB PRN (22:37)
[2024-02-22] MEDS: MAGNESIUM SULFATE 20GM/500ML - 20 GM/500 ML INFUS.BAG IVPB SCH (23:05)
[2024-02-23 02:53] LABS: CHLORIDE 108 mmol/L (98-107); POTASSIUM 4.4 mmol/L (3.5-5.1); SODIUM 137 mmol/L (136-145)
[2024-02-23 02:55] LABS: CALCIUM 7.6 mg/dL (8.5-10.1)
[2024-02-23 02:56] LABS: ALBUMIN 2.8 g/dl (3.4-5.0); ANION GAP 7 mmol/L (4-13); BLOOD UREA NITROGEN 15.7 mg/dL (7-18); CO2 23 mmol/L (21-32); GLUCOSE,RANDOM 128 mg/dL (74-106)
[2024-02-23 02:59] LABS: CREATININE 0.4 mg/dL (0.55-1.3); SGOT/AST 89 U/L (15-37); SGPT/ALT 158 U/L (13-61)
[2024-02-23 03:00] LABS: BILIRUBIN,TOTAL 0.3 mg/dL (0.2-1)
[2024-02-23 03:02] LABS: ALK PHOS 216 U/L (45-117)
[2024-02-23 03:24] LABS: MAGNESIUM 5.2 mg/dL (1.8-2.4)
[2024-02-23] MEDS ORDERED: MAGNESIUM SULFATE 20GM/500ML - 20 GM/500 ML INFUS.BAG ONE (08:08)
[2024-02-23 10:00] LABS: BASO % 0.1 % (0-2.0); HEMATOCRIT 37.3 % (32.4-45.2); HEMOGLOBIN 12.6 GM/dL (10.7-15.3); LYMPH % 7.5 % (8-40); MCH 29.2 pg (25.7-33.7); MCHC 33.8 g/dl (32.0-36.0); MEAN CELL VOLUME 86.2 fl (80-96); MEAN PLT VOLUME 7.8 fl (7.5-11.1); MONO % 5.4 % (3.8-10.2); PLATELET COUNT 222 10^3/uL (134-434); RBC 4.32 M/mm3 (3.60-5.2); RDW 14.8 % (11.6-15.6); WHITE BLOOD COUNT 17.3 K/mm3 (4.0-10.0)
[2024-02-23] MEDS ORDERED: oxyCODONE HCL 5 MG TABLET PO PRN ×2 (10:04)
[2024-02-23 10:26] LABS: CHLORIDE 105 mmol/L (98-107); POTASSIUM 4.1 mmol/L (3.5-5.1); SODIUM 135 mmol/L (136-145)
[2024-02-23 10:28] LABS: CALCIUM 7.1 mg/dL (8.5-10.1)
[2024-02-23 10:29] LABS: ALBUMIN 2.6 g/dl (3.4-5.0); ANION GAP 8 mmol/L (4-13); BLOOD UREA NITROGEN 11.7 mg/dL (7-18); CO2 23 mmol/L (21-32); GLUCOSE,RANDOM 120 mg/dL (74-106)
[2024-02-23 10:32] LABS: CREATININE 0.6 mg/dL (0.55-1.3); SGOT/AST 132 U/L (15-37); SGPT/ALT 224 U/L (13-61)
[2024-02-23 10:34] LABS: BILIRUBIN,TOTAL 0.3 mg/dL (0.2-1); TOT PROT 5.8 g/dl (6.4-8.2)
[2024-02-23 10:35] LABS: ALK PHOS 209 U/L (45-117)
[2024-02-23] MEDS ORDERED: OXYTOCIN 20 UNITS in 0.9% NS 20 UNIT/1,000 ML INFUS.BAG IV ONE (10:37)
[2024-02-23 10:41] LABS: MAGNESIUM 6.1 mg/dL (1.8-2.4)
[2024-02-23] MEDS: MAGNESIUM SULFATE 20GM/500ML - 20 GM/500 ML INFUS.BAG IVPB SCH (11:00)
[2024-02-23] MEDS: ENOXAPARIN NA (PORCINE) 40 MG/0.4 ML DISP.SYRIN SQ SCH (11:18)
[2024-02-23] MEDS: LABETALOL HCL 100 MG TABLET (FP) PO SCH (11:20)
[2024-02-23] MEDS ORDERED: LABETALOL HCL 100 MG TABLET (FP) ONE ×2 (11:21→22:17)
[2024-02-23] MEDS ORDERED: BISACODYL 10 MG SUPP.RECT RC PRN (22:04)
[2024-02-23] MEDS: MAGNESIUM SULFATE IN WATER 2 GM/50 ML IVPB IVPB ONE (23:35)
[2024-02-24 07:00] LABS: BASO % 0.2 % (0-2.0); EOS % 0.1 % (0-4.5); HEMATOCRIT 35.6 % (32.4-45.2); HEMOGLOBIN 12.5 GM/dL (10.7-15.3); LYMPH % 17.3 % (8-40); MCH 30.3 pg (25.7-33.7); MEAN CELL VOLUME 86.5 fl (80-96); MEAN PLT VOLUME 7.9 fl (7.5-11.1); MONO % 7.7 % (3.8-10.2); NEUT % 74.7 % (42.8-82.8); PLATELET COUNT 233 10^3/uL (134-434); RBC 4.11 M/mm3 (3.60-5.2); RDW 15.2 % (11.6-15.6); WHITE BLOOD COUNT 10.4 K/mm3 (4.0-10.0)
[2024-02-24 07:17] LABS: POTASSIUM 4.4 mmol/L (3.5-5.1)
[2024-02-24 07:24] LABS: ALBUMIN 2.5 g/dl (3.4-5.0); BLOOD UREA NITROGEN 11.3 mg/dL (7-18)
[2024-02-24 07:27] LABS: CREATININE 0.5 mg/dL (0.55-1.3)
[2024-02-24 07:28] LABS: TOT PROT 5.5 g/dl (6.4-8.2)
[2024-02-24 07:37] LABS: BILIRUBIN,TOTAL 0.4 mg/dL (0.2-1)
[2024-02-24] MEDS: IBUPROFEN 600 MG TABLET (FP) PO PRN (21:39)
[2024-02-24] MEDS: SIMETHICONE 80 MG TAB.CHEW (FP) PO PRN (21:39)
[2024-02-25 06:42] LABS: BASO % 0.4 % (0-2.0); EOS % 0.6 % (0-4.5); HEMATOCRIT 35.9 % (32.4-45.2); HEMOGLOBIN 12.3 GM/dL (10.7-15.3); LYMPH % 26.5 % (8-40); MCH 30.2 pg (25.7-33.7); MCHC 34.3 g/dl (32.0-36.0); MEAN CELL VOLUME 88.2 fl (80-96); MEAN PLT VOLUME 7.9 fl (7.5-11.1); MONO % 7.9 % (3.8-10.2); NEUT % 64.6 % (42.8-82.8); PLATELET COUNT 218 10^3/uL (134-434); RBC 4.07 M/mm3 (3.60-5.2); RDW 15.1 % (11.6-15.6); WHITE BLOOD COUNT 9.1 K/mm3 (4.0-10.0)
[2024-02-25 07:02] LABS: POTASSIUM 4.4 mmol/L (3.5-5.1)
[2024-02-25 07:07] LABS: CALCIUM 7.9 mg/dL (8.5-10.1)
[2024-02-25 07:08] LABS: ALBUMIN 2.4 g/dl (3.4-5.0); BLOOD UREA NITROGEN 18.1 mg/dL (7-18)
[2024-02-25 07:11] LABS: CREATININE 0.4 mg/dL (0.55-1.3)
[2024-02-25 07:12] LABS: BILIRUBIN,TOTAL 0.3 mg/dL (0.2-1)
[2024-02-25 07:13] LABS: TOT PROT 5.3 g/dl (6.4-8.2)
[2024-02-26 08:18] LABS: BASO % 0.5 % (0-2.0); EOS % 1.9 % (0-4.5); HEMATOCRIT 35.9 % (32.4-45.2); HEMOGLOBIN 12.3 GM/dL (10.7-15.3); LYMPH % 28.6 % (8-40); MCH 29.9 pg (25.7-33.7); MCHC 34.1 g/dl (32.0-36.0); MEAN CELL VOLUME 87.4 fl (80-96); MEAN PLT VOLUME 7.4 fl (7.5-11.1); MONO % 6.4 % (3.8-10.2); NEUT % 62.6 % (42.8-82.8); PLATELET COUNT 233 10^3/uL (134-434); RDW 14.7 % (11.6-15.6); WHITE BLOOD COUNT 7.9 K/mm3 (4.0-10.0)
[2024-02-26 08:21] LABS: POTASSIUM 3.6 mmol/L (3.5-5.1)
[2024-02-26 09:59] LABS: ALBUMIN 2.5 g/dl (3.4-5.0); BILIRUBIN,TOTAL 0.4 mg/dL (0.2-1); BLOOD UREA NITROGEN 13.3 mg/dL (7-18); CALCIUM 8.5 mg/dL (8.5-10.1); CREATININE 0.4 mg/dL (0.55-1.3); TOT PROT 5.5 g/dl (6.4-8.2)
[2024-02-26 11:07] VITALS: BP 145/95; PULSE 79; RESP 16; TEMP 98.1
== END 2024-02-26 10:50 | disposition home or self-care (01) | DRG 540 ==
LOC: JDEL 16:35 → JLDR 19:15 → J3W 02-23 23:55
PROVIDERS: ADMIT Obstetrics & Gynecology Obstetrics; ATTEND Obstetrics & Gynecology Obstetrics
PROC: 10D00Z1 Extraction of Products of Conception, Low, Open Approach (ICD-10-PCS; principal; 2024-02-22)
DX: O14.14 Severe pre-eclampsia complicating childbirth (principal); O76 Abnormality in fetal heart rate and rhythm complicating labor and delivery; O24.429 Gestational diabetes mellitus in childbirth, unspecified control; Z3A.35 35 weeks gestation of pregnancy; Z37.0 Single live birth
CPT/HCPCS: 36415; 36600; 76819-TC; 80048; 80053; 82803; 82977; 83010; 83735; 84450; 84460; 84550; 85025; 85032; 85045; 85610; 85730; 86780; 86850; 86900; 86901; 88307-TC; 96372